=== PATIENT | female | born 1995 | race American Indian/Alaskan Native ===

== ENCOUNTER 2017-04-06 14:16 | Emergency (ER) | payer OTHER ==
[2017-04-06 17:03] VITALS: BP 123/78
[2017-04-06 21:25] LABS: HCG Qualitative,Urine Negative (Negative)
[2017-04-06 21:30] LABS: Bilirubin,Urine NEG (Negative); Blood,Urine SM (Negative); Color,Urine Yellow (Yellow); Mucus,Urine 3+ /HPF; Nitrite,Urine NEG (Negative); Protein,Urine <15 mg/dL mg/dL (Negative); Urobilinogen,Urine < 2.0 mg/dL (<2.0)
== END 2017-04-06 19:18 | disposition left against medical advice (07) ==
LOC: ED 14:16
DX: Z11.3 Encounter for screening for infections with a predominantly sexual mode of transmission (principal); Z53.21 Procedure and treatment not carried out due to patient leaving prior to being seen by health care provider
CPT/HCPCS: 81001; 81025

== ENCOUNTER 2017-11-15 11:32 | Emergency (ER) | payer OTHER | END 2017-11-15 11:33 | disposition left against medical advice (07) | LOC: ED 11:32 | DX: N89.8 Other specified noninflammatory disorders of vagina (principal); Z53.21 Procedure and treatment not carried out due to patient leaving prior to being seen by health care provider ==